=== PATIENT | male | born 1985 | race American Indian/Alaskan Native ===

== ENCOUNTER 2018-10-24 09:07 | Emergency (ER) | payer OTHER ==
[2018-10-24 09:15] VITALS: BP 127/85
--- NOTE | 2018-10-24 10:49 | Emergency Department Report ---
ED ENT HPI - General Chief complaint: Dental/Oral Stated complaint: R SIDE MOUTH PAIN/CANT EAT OR SWALLOW Source: patient Mode of arrival: Ambulatory Limitations: No Limitations - History of Present Illness Initial comments: This is a 33-year-old -[place]aur[place] female presents to the emergency room with right lower side dental pain for 2-3 days. Patient states this same tooth broke 2 years ago but he really hasn't had any issues with it until recently. He has currently taken [id number] NSAIDs with no improvement of symptoms. He denies facial swelling, difficulty swallowing, sore throat, fever, nausea or vomiting. MD complaint: tooth pain Onset/Timin -: days(s) Location: tooth # (32) Severity: severe Severity scale (0 -10): 10 Quality: aching, other (throbbing) Consistency: constant Improves with: none Worsens with: eating Context- Dental: poor dental care Associated Symptoms: gum swelling, toothache. denies: fever, cough, pain with swallowing, sore throat, tinnitus, hearing loss, discharge from ear, rhinorrhea - Related Data Previous Rx's Medication Instructions Recorded Last Taken Type Amoxicillin [Trimox CAP] 500 mg PO Q8H #21 capsule 10/24/18 Unknown Rx Naproxen [Naprosyn] 500 mg PO BID PRN #20 tablet 10/24/18 Unknown Rx traMADol [Ultram 50 MG tab] 50 mg PO Q6HR PRN #12 tablet 10/24/18 Unknown Rx Allergies Allergy/AdvReac Type Severity Reaction Status Date / Time No Known Allergies Allergy Unverified 10/24/18 09:15 ED Dental HPI - General Chief complaint: Dental/Oral Stated complaint: R SIDE MOUTH PAIN/CANT EAT OR SWALLOW Source: patient Mode of arrival: Ambulatory Limitations: No Limitations - Related Data Previous Rx's Medication Instructions Recorded Last Taken Type Amoxicillin [Trimox CAP] 500 mg PO Q8H #21 capsule 10/24/18 Unknown Rx Naproxen [Naprosyn] 500 mg PO BID PRN #20 tablet 10/24/18 Unknown Rx traMADol [Ultram 50 MG tab] 50 mg PO Q6HR PRN #12 tablet 10/24/18 Unknown Rx Allergies Allergy/AdvReac Type Severity Reaction Status Date / Time No Known Allergies Allergy Unverified 10/24/18 09:15 ED Review of Systems ROS: Stated complaint: R SIDE MOUTH PAIN/CANT EAT OR SWALLOW Other details as noted in HPI Constitutional: denies: chills, fever ENT: dental pain. denies: ear pain, throat pain Respiratory: denies: cough, shortness of breath, wheezing Cardiovascular: denies: chest pain, palpitations Gastrointestinal: denies: abdominal pain, nausea, diarrhea Skin: denies: rash, lesions Neurological: denies: headache, weakness, paresthesias Psychiatric: denies: anxiety, depression ED Past Medical Hx - Past Medical History Previous Medical History?: No - Surgical History Past Surgical History?: No - Social History Smoking Status: Current Every Day Smoker Substance Use Type: Marijuana - Medications Home Medications: Home Medications Medication Instructions Recorded Confirmed Last Taken Type Amoxicillin [Trimox CAP] 500 mg PO Q8H #21 capsule 10/24/18 Unknown Rx Naproxen [Naprosyn] 500 mg PO BID PRN #20 tablet 10/24/18 Unknown Rx traMADol [Ultram 50 MG tab] 50 mg PO Q6HR PRN #12 tablet 10/24/18 Unknown Rx ED Physical Exam - General Limitations: No Limitations General appearance: alert, in no apparent distress - ENT ENT exam: Present: normal orophraynx, mucous membranes moist, TM's normal bilaterally, normal external ear exam, other (buccal swelling aroung #32, tenderness, dark brown caries center tooth, no palpable cyst pockets) - Neck Neck exam: Present: normal inspection - Respiratory Respiratory exam: Present: normal lung sounds bilaterally. Absent: respiratory distress - Cardiovascular Cardiovascular Exam: Present: regular rate, normal rhythm. Absent: systolic murmur, diastolic murmur, rubs, gallop - Neurological Exam Neurological exam: Present: alert, oriented X3 - Psychiatric Psychiatric exam: Present: normal affect, normal mood - Skin Skin exam: Present: warm, dry, intact, normal color. Absent: rash ED Course Vital Signs 10/24/18 09:11 Temperature 98.6 F Pulse Rate 76 Respiratory 16 Rate Blood Pressure 127/85 O2 Sat by Pulse 99 Oximetry ED Medical Decision Making - Medical Decision Making This is a 33-year-old male that presents with dental pain for 3 days. Patient is stable and was examined by me. Given norco once in ER. Susceptible of dental dental caries. Start amoxicillin, tramadol, and naproxen. Discussed plan with patient. He agreed with ER plan. Discharged home stable. Follow up with dentist. Critical care attestation.: If time is entered above; I have spent that time in minutes in the direct care of this critically ill patient, excluding procedure time. ED Disposition Clinical Impression: Toothache, Dental caries Disposition: TO HOME OR SELFCARE Is pt being admited?: No Does the pt Need Aspirin: No Condition: Stable Instructions: Toothache (ED), Dental Caries (ED) Additional Instructions: Complete all days of antibiotics as prescribed. Take pain medication every 6 hours as needed for pain. Follow up with a dentist from the referrals list below. Prescriptions: Naproxen [Naprosyn] 500 mg PO BID PRN #20 tablet PRN Reason: Pain, Moderate (4-6) Amoxicillin [Trimox CAP] 500 mg PO Q8H #21 capsule traMADol [Ultram 50 MG tab] 50 mg PO Q6HR PRN #12 tablet PRN Reason: Pain [facility] [Primary Care Provider[facility] - 3-5 Days [facility] [Outside] - 3-5 Days [facility] [Outside] - 3-5 Days [facility] [Outside] - 3-5 Days Forms: Work/School Release Form(ED) Time of Disposition: 10:55
[2018-10-24] MEDS ORDERED: NORCO 5/325 PO ONE (10:50)
== END 2018-10-24 11:06 | disposition home or self-care (01) ==
LOC: ED 09:07
DX: K02.9 Dental caries, unspecified (principal); F17.200 Nicotine dependence, unspecified, uncomplicated; F12.10 Cannabis abuse, uncomplicated

== ENCOUNTER 2018-10-28 09:20 | Emergency (ER) | payer OTHER ==
[2018-10-28] MEDS ORDERED: CLEOCIN 900 MG/50 mL 900 MG/50 ML BAG IV ONE (10:26)
[2018-10-28] MEDS ORDERED: DECADRON IV ONE (10:26)
[2018-10-28] MEDS ORDERED: MORPHINE IV ONE (10:26)
[2018-10-28] MEDS ORDERED: ZOFRAN IV ONE (10:26)
[2018-10-28] MEDS ORDERED: NACL 0.9% 1000 ML 1,000 ML IV ONE ×2 (10:26→12:20)
--- NOTE | 2018-10-28 10:38 | Emergency Department Report ---
Blank Doc - Documentation Documentation: This is a 31-year-old male that presents with dental pain, sore throat with sw elling. Patient state he is currently taking amoxicillin that was here 3 days ago for a dental pain. He stated that it is getting worse appointment now that he has some difficulty breathing and able to open mouth. Upon exam patient has severe swelling and trismus. Patient was sent to the main ED for possible airway compromise. I did put in laboratory orders as well as CT scan with contrast of neck. Patient also is receiving clindamycin, Decadron, normal saline.
[2018-10-28] MEDS ORDERED: VICKS SINEX NS ONE (10:53)
[2018-10-28] MEDS ORDERED: VICKS SINEX ONE (10:56)
[2018-10-28] MEDS ORDERED: QUELICIN ONE (11:30)
[2018-10-28] MEDS ORDERED: AMIDATE IV ONE ×2 (11:30→11:37)
[2018-10-28] MEDS ORDERED: VERSED IV ONE (11:30)
[2018-10-28] MEDS ORDERED: ARTIFICIAL TEARS OPHTH OINT OU PRN (11:34)
[2018-10-28] MEDS ORDERED: VASELINE LIP THERAPY TP PRN (11:34)
[2018-10-28] MEDS ORDERED: QUELICIN IV ONE (11:37)
[2018-10-28] MEDS ORDERED: DIPRIVAN 10 MG/ML 1,000 MG/100 ML BOTTLE IV ONE (11:39)
--- NOTE | 2018-10-28 11:42 | Emergency Department Report ---
ED ENT HPI - General Chief complaint: Sore Throat Stated complaint: SWOLLEN THROAT Time Seen by Provider: 10/28/18 10:00 Source: patient Mode of arrival: Ambulatory Limitations: No Limitations - History of Present Illness Initial comments: Patient is a 33-year-old male who is presenting with difficulty swallowing. Patient was seen here 4 days ago for right sided tooth and jaw pain. Patient was diagnosed with possible dental abscess. Amoxicillin. Patient states that the pain and swelling has worsened over the last several days. Patient can hardly open his mouth and has a muffled voice and states that swallowing is "excruciating". Patient denies any fevers nausea vomiting diarrhea at this time. - Related Data Previous Rx's Medication Instructions Recorded Last Taken Type Amoxicillin [Trimox CAP] 500 mg PO Q8H #21 capsule 10/24/18 Unknown Rx Naproxen [Naprosyn] 500 mg PO BID PRN #20 tablet 10/24/18 Unknown Rx traMADol [Ultram 50 MG tab] 50 mg PO Q6HR PRN #12 tablet 10/24/18 Unknown Rx Allergies Allergy/AdvReac Type Severity Reaction Status Date / Time No Known Allergies Allergy Unverified 10/24/18 09:15 ED Dental HPI - General Chief complaint: Sore Throat Stated complaint: SWOLLEN THROAT Time Seen by Provider: 10/28/18 10:00 Source: patient Mode of arrival: Ambulatory Limitations: No Limitations - Related Data Previous Rx's Medication Instructions Recorded Last Taken Type Amoxicillin [Trimox CAP] 500 mg PO Q8H #21 capsule 10/24/18 Unknown Rx Naproxen [Naprosyn] 500 mg PO BID PRN #20 tablet 10/24/18 Unknown Rx traMADol [Ultram 50 MG tab] 50 mg PO Q6HR PRN #12 tablet 10/24/18 Unknown Rx Allergies Allergy/AdvReac Type Severity Reaction Status Date / Time No Known Allergies Allergy Unverified 10/24/18 09:15 ED Review of Systems ROS: Stated complaint: SWOLLEN THROAT Other details as noted in HPI Comment: All other systems reviewed and negative ED Past Medical Hx - Past Medical History Previous Medical History?: No - Surgical History Past Surgical History?: No - Social History Smoking Status: Current Every Day Smoker Substance Use Type: Alcohol - Medications Home Medications: Home Medications Medication Instructions Recorded Confirmed Last Taken Type Amoxicillin [Trimox CAP] 500 mg PO Q8H #21 capsule 10/24/18 Unknown Rx Naproxen [Naprosyn] 500 mg PO BID PRN #20 tablet 10/24/18 Unknown Rx traMADol [Ultram 50 MG tab] 50 mg PO Q6HR PRN #12 tablet 10/24/18 Unknown Rx ED Physical Exam - General Limitations: No Limitations General appearance: alert, in distress - Head Head exam: Present: atraumatic, normocephalic - Eye Eye exam: Present: normal appearance - ENT ENT exam: Present: mucous membranes moist - Expanded ENT Exam Expanded Ear exam: Present: normal external inspection Mouth exam: Present: drooling, trismus, muffled voice, tongue elevation (patient with submental and sublingual swelling and edema). Absent: tongue normal Throat exam: Positive: other (unable to visualize the posterior pharynx at bedsi de exam) - Neck Neck exam: Present: normal inspection, tenderness, lymphadenopathy - Respiratory Respiratory exam: Present: normal lung sounds bilaterally. Absent: respiratory distress, wheezes, rales, rhonchi, stridor - Cardiovascular Cardiovascular Exam: Present: regular rate, normal rhythm. Absent: systolic murmur, diastolic murmur, rubs, gallop - GI/Abdominal GI/Abdominal exam: Present: soft, normal bowel sounds. Absent: distended, t enderness, guarding, rebound - Rectal Rectal exam: Present: deferred - Extremities Exam Extremities exam: Present: normal inspection - Back Exam Back exam: Present: normal inspection - Neurological Exam Neurological exam: Present: alert, oriented X3 - Psychiatric Psychiatric exam: Present: normal affect, normal mood - Skin Skin exam: Present: warm, dry, intact, normal color. Absent: rash ED Course Vital Signs 10/28/18 10/28/18 10/28/18 09:34 10:39 10:46 Temperature 98.5 F Pulse Rate 91 H 101 H 84 Pulse Rate [ Anterior Bilateral Throughout] Respiratory 18 15 17 Rate Respiratory Rate [Anterior Bilateral Throughout] Blood Pressure 132/88 132/88 Blood Pressure 140/85 [Right] O2 Sat by Pulse 99 99 100 Oximetry 10/28/18 10/28/18 10/28/18 11:00 11:16 11:30 Temperature Pulse Rate 89 84 95 H Pulse Rate [ Anterior Bilateral Throughout] Respiratory 20 17 11 L Rate Respiratory Rate [Anterior Bilateral Throughout] Blood Pressure 129/95 136/89 140/86 Blood Pressure [Right] O2 Sat by Pulse 100 97 99 Oximetry 10/28/18 10/28/18 10/28/18 11:40 11:45 11:50 Temperature Pulse Rate 98 H 98 H 94 H Pulse Rate [ Anterior Bilateral Throughout] Respiratory 23 23 15 Rate Respiratory Rate [Anterior Bilateral Throughout] Blood Pressure Blood Pressure 133/85 135/82 143/82 [Right] O2 Sat by Pulse 99 99 99 Oximetry 10/28/18 10/28/18 10/28/18 12:05 12:33 12:42 Temperature Pulse Rate 89 88 87 Pulse Rate [ Anterior Bilateral Throughout] Respiratory 14 16 Rate Respiratory Rate [Anterior Bilateral Throughout] Blood Pressure 126/76 133/85 Blood Pressure 136/78 [Right] O2 Sat by Pulse 99 100 100 Oximetry 10/28/18 10/28/18 10/28/18 12:45 13:00 13:06 Temperature Pulse Rate 87 89 Pulse Rate [ 84 Anterior Bilateral Throughout] Respiratory 16 16 Rate Respiratory 16 Rate [Anterior Bilateral Throughout] Blood Pressure 124/75 Blood Pressure 133/81 [Right] O2 Sat by Pulse 99 Oximetry 10/28/18 10/28/18 10/28/18 13:40 14:43 16:33 Temperature Pulse Rate 79 83 85 Pulse Rate [ Anterior Bilateral Throughout] Respiratory 16 16 16 Rate Respiratory Rate [Anterior Bilateral Throughout] Blood Pressure Blood Pressure 127/75 123/74 120/65 [Right] O2 Sat by Pulse 100 100 100 Oximetry 10/28/18 16:34 Temperature Pulse Rate 81 Pulse Rate [ Anterior Bilateral Throughout] Respiratory 16 Rate Respiratory Rate [Anterior Bilateral Throughout] Blood Pressure Blood Pressure 118/67 [Right] O2 Sat by Pulse 100 Oximetry - Reevaluation(s) Reevaluation #1: 10/28/18 16:09 CT report has returned which shows that the patient does have a confirmed with expansion. Did discuss the case with Dr. Shelton with [facility] and he states that they normally deferred to the oral surgeon's. There is a call center we contacted Dr. Josephine Russ who states she is actually on her way to [facility] elective patient transferred there. Call has been made to [place] transfer line to have the patient accepted Reevaluation #2: 10/28/18 16:37 Discussed the case with Dr. Russ with oral surgery and she stated that she is actually on her way to [facility] at this time to perform surgery on another patient. She would like the patient to be transferred to the ED so that this patient couldn't be taken to the OR after the patient she is going to see currently. Dr. Gambino at the ED has accepted the patient at this time. - Intubation Time Out Performed: Yes Sedative: Etomidate Mg Given: 20 Paralytic: Succinylcholine Mg Given: 100 Laryngoscope: fiberoptic video scope ET Tube Size: 7.5 Other Airway Intervention: Dr. Palomo from anesthesia performed intubation Tube Secured Depth (cm): 22 Tube Secured Location: lips Tube Placement Confirmation: visualized tube passing t, equal breath sounds bilat, no breath sounds over epi, confirmation by capnometr Patient Tolerated Procedure: well Intubation Complications: none Additional Comments: Patient had first attempt performed by me however the patient had a great deal of posterior pharyngeal swelling and Dr. Palomo took over the intubation. Patient was intubated on first attempt. There were no evidence of hypoxia. ED Medical Decision Making - Lab Data Result diagrams: 10/28/18 11:15 10/28/18 11:15 Lab Results 10/28/18 10/28/18 10/28/18 Range/Units 11:15 11:15 11:15 WBC 15.0 H (4.5-11.0) K/mm3 RBC 5.10 H (3.65-5.03) M/mm3 Hgb 16.4 H (11.8-15.2) gm/dl Hct 48.4 H (35.5-45.6) % MCV 95 H (84-94) fl MCH 32 (28-32) pg MCHC 34 (32-34) % RDW 13.7 (13.2-15.2) % Plt Count 245 (140-440) K/mm3 Lymph % (Auto) 10.2 L (13.4-35.0) % Kane % (Auto) 10.8 H (0.0-7.3) % Eos % (Auto) 0.2 (0.0-4.3) % Baso % (Auto) 0.2 (0.0-1.8) % Lymph # 1.5 (1.2-5.4) K/mm3 Kane # 1.6 H (0.0-0.8) K/mm3 Eos # 0.0 (0.0-0.4) K/mm3 Baso # 0.0 (0.0-0.1) K/mm3 Seg Neutrophils % 78.6 H (40.0-70.0) % Seg Neutrophils # 11.8 H (1.8-7.7) K/mm3 POC ABG pH (7.35-7.45) POC ABG pCO2 (35-45) POC ABG pO2 (80-105) POC ABG HCO3 (22-26 mml/L) POC ABG Total CO2 (23-27mmol/L) POC ABG O2 Sat POC ABG Base Excess ((-2) - (+3)mmol/L) FiO2 % Sodium 136 L (137-145) mmol/L Potassium 3.8 (3.6-5.0) mmol/L Chloride 98.7 (98-107) mmol/L Carbon Dioxide 19 L (22-30) mmol/L Anion Gap 22 mmol/L BUN 16 (9-20) mg/dL Creatinine 2.2 H (0.8-1.5) mg/dL Estimated GFR 42 ml/min BUN/Creatinine Ratio 7 % Glucose 134 H (75-100) mg/dL Lactic Acid 2.20 H* (0.7-2.0) mmol/L Calcium 9.4 (8.4-10.2) mg/dL 10/28/18 10/28/18 Range/Units 12:55 13:03 WBC (4.5-11.0) K/mm3 RBC (3.65-5.03) M/mm3 Hgb (11.8-15.2) gm/dl Hct (35.5-45.6) % MCV (84-94) fl MCH (28-32) pg MCHC (32-34) % RDW (13.2-15.2) % Plt Count (140-440) K/mm3 Lymph % (Auto) (13.4-35.0) % Kane % (Auto) (0.0-7.3) % Eos % (Auto) (0.0-4.3) % Baso % (Auto) (0.0-1.8) % Lymph # (1.2-5.4) K/mm3 Kane # (0.0-0.8) K/mm3 Eos # (0.0-0.4) K/mm3 Baso # (0.0-0.1) K/mm3 Seg Neutrophils % (40.0-70.0) % Seg Neutrophils # (1.8-7.7) K/mm3 POC ABG pH 7.332 L (7.35-7.45) POC ABG pCO2 40.9 (35-45) POC ABG pO2 262 H (80-105) POC ABG HCO3 21.7 (22-26 mml/L) POC ABG Total CO2 23 (23-27mmol/L) POC ABG O2 Sat 100 POC ABG Base Excess -4 ((-2) - (+3)mmol/L) FiO2 50 % Sodium (137-145) mmol/L Potassium (3.6-5.0) mmol/L Chloride (98-107) mmol/L Carbon Dioxide (22-30) mmol/L Anion Gap mmol/L BUN (9-20) mg/dL Creatinine (0.8-1.5) mg/dL Estimated GFR ml/min BUN/Creatinine Ratio % Glucose (75-100) mg/dL Lactic Acid 1.20 (0.7-2.0) mmol/L Calcium (8.4-10.2) mg/dL - Radiology Data [facility] [address] [place] [address] Cat Scan Report Signed Patient: RAÚL KHANNA MR#: [id number] : 1985 Acct:[id number] Age/Sex: 33 / M ADM Date: 10/28/18 Loc: ED Attending Dr: Ordering Physician: EMILY GOOD NP Date of Service: 10/28/18 Procedure(s): CT neck w con Accession Number(s): [id number] cc: EMILY GOOD NP PROCEDURE: CT NECK W CON TECHNIQUE: CT angiography of the neck performed. Following IV contrast administration, axial images and axial and coronal reformatted images were obtained. HISTORY: dental pain with sore throat and swelling r/o absc COMPARISON: None FINDINGS: There is edema in the submandibular region, mostly on the right. This extends into the parapharyngeal region at the level of the oropharynx and hypopharynx. The airway is shifted to the left. Fluid in the nasopharynx, oropharynx probably relates to intubation. There is a bony lucency in the right mandible around the roots of posterior most molar which is likely the wisdom tooth. There is a defect in the overlying inner mandibular cortex. Findings are compatible with a periapical tooth abscess and likely represents the source of abnormal findings. I do not identify any measurable/defined soft tissue abscess although there is some fluid in the adjacent submandibular region and at least one gas bubble within the soft tissues. There is a midline submandibular lymph node measuring 1.6 cm. There are multiple minimally prominent lymph nodes in the right neck which is likely reactive adenopathy. Visualized sinuses are clear. IMPRESSION: Extensive edema and swelling involving the right submandibular region extending into the parapharyngeal soft tissues of the oropharynx and hypopharynx. Findings appear to emanate from periapical tooth abscess involving posterior-most lower molar on the right, likely the wisdom tooth. Although a measurable defined soft tissue abscess is not identified, there is adjacent fluid in the soft tissues as well a single bubble of soft tissue gas. This document is electronically signed by Mariaa Parker MD., October 28 2018 03:21:53 PM ET Transcribed By: RADHA Dictated By: MARIAA PARKER MD Electronically Authenticated By: MARIAA PARKER MD Signed Date/Time: 10/28/18 1523 DD/ 1026 TD/TT: 10/28/18 1026 Critical Care Time: Yes (30) Critical care attestation.: If time is entered above; I have spent that time in minutes in the direct care of this critically ill patient, excluding procedure time. ED Disposition Clinical Impression: Sukumar's angina syndrome, Respiratory compromise, Dental abscess Disposition: [id number]/TX-[id number] ANOTHER TYPE HLTHCARE Is pt being admited?: No Does the pt Need Aspirin: No Condition: Stable Time of Disposition: 16:40
[2018-10-28 11:57] LABS: Basophils % (Auto) 0.2 % (0.0-1.8); Calcium 9.4 mg/dL (8.4-10.2); Eosinophils % (Auto) 0.2 % (0.0-4.3); Hematocrit 48.4 % (35.5-45.6); Hemoglobin 16.4 gm/dl (11.8-15.2); Lymphocytes # (Auto) 1.5 K/mm3 (1.2-5.4); Lymphocytes % (Auto) 10.2 % (13.4-35.0); Mean Corpuscular HGB Conc 34 % (32-34); Mean Corpuscular Volume 95 fl (84-94); Monocytes # (Auto) 1.6 K/mm3 (0.0-0.8); Monocytes % (Auto) 10.8 % (0.0-7.3); Platelet Count 245 K/mm3 (140-440); Red Cell Distribution Width 13.7 % (13.2-15.2)
[2018-10-28] MEDS ORDERED: DIPRIVAN 10 MG/ML 1,000 MG/100 ML BOTTLE IV SCH (12:00)
[2018-10-28] MEDS ORDERED: DILAUDID IV ONE (12:14)
[2018-10-28] MEDS: VERSED IV NR ×2 (12:27→17:31)
[2018-10-28] MEDS ORDERED: VERSED IV PRN (12:34)
[2018-10-28] MEDS ORDERED: SUBLIMAZE IV PRN (12:43)
[2018-10-28] MEDS ORDERED: MIDAZOLAM 100 MG in NACL 0.9% 80 ML IV SCH (13:00)
[2018-10-28] MEDS ORDERED: fentaNYL DRIP Premix 2,000 MCG/100 ML BAG IV SCH (13:00)
[2018-10-28] MEDS ORDERED: VERSED IV NR (13:00)
--- NOTE | 2018-10-28 13:13 | XRay Report ---
PROCEDURE: XR CHEST 1V AP TECHNIQUE: Chest radiograph single view. HISTORY: ETT placement COMPARISONS: None . FINDINGS: Heart: Normal. Mediastinum/Vessels: Normal. Lungs/Pleural space: No infiltrate, effusion, or pneumothorax. Bony thorax: No acute osseous abnormality. Life support devices: The endotracheal tube tip projects 4 cm superior to the meera. IMPRESSION: No radiographic evidence of acute abnormality. This document is electronically signed by Dilia Womack MD., October 28 2018 01:11:36 PM ET
--- NOTE | 2018-10-28 15:23 | Cat Scan Report ---
PROCEDURE: CT NECK W CON TECHNIQUE: CT angiography of the neck performed. Following IV contrast administration, axial images and axial and coronal reformatted images were obtained. HISTORY: dental pain with sore throat and swelling r/o absc COMPARISON: None FINDINGS: There is edema in the submandibular region, mostly on the right. This extends into the parapharyngeal region at the level of the oropharynx and hypopharynx. The airway is shifted to the left. Fluid in the nasopharynx, oropharynx probably relates to intubation. There is a bony lucency in the right mandible around the roots of posterior most molar which is likel y the wisdom tooth. There is a defect in the overlying inner mandibular cortex. Findings are compatib le with a periapical tooth abscess and likely represents the source of abnormal findings. I do not id entify any measurable/defined soft tissue abscess although there is some fluid in the adjacent subman dibular region and at least one gas bubble within the soft tissues. There is a midline submandibular lymph node measuring 1.6 cm. There are multiple minimally prominent lymph nodes in the right neck which is likely reactive adenopathy. Visualized sinuses are clear. IMPRESSION: Extensive edema and swelling involving the right submandibular region extending into the parapharyngeal soft tissues of the oropharynx and hypopharynx. Findings appear to emanate from periapical tooth abscess involving posterior-most lower molar on the right, likely the wisdom tooth. Although a measurable defined soft tissue abscess is not identified, there is adjacent fluid in the soft tissues as well a single bubble of soft tissue gas. This document is electronically signed by Mariaa Parker MD., October 28 2018 03:21:53 PM ET
[2018-10-28 17:15] VITALS: BP 119/64
== END 2018-10-28 17:40 | disposition other institution (70) ==
LOC: ED 09:20
DX: K12.2 Cellulitis and abscess of mouth (principal); K04.7 Periapical abscess without sinus; F17.200 Nicotine dependence, unspecified, uncomplicated
CPT/HCPCS: 31500; 36415; 70491; 71045; 80048; 82140; 82803; 85025; 87070; 87205; 94640; 96365; 96366; 96367; 96375; 99291; J0330; J1100; J1170; J2250; J2270; J2405; J2704; J3010; J7030; Q9967; 94002

== ENCOUNTER 2019-08-15 16:08 | Emergency (ER) | payer SELFPAY ==
[2019-08-15 16:40] LABS: Basophils % (Auto) 0.6 % (0.0-1.8); Eosinophils % (Auto) 0.3 % (0.0-4.3); Hematocrit 44.3 % (35.5-45.6); Hemoglobin 15.2 gm/dl (11.8-15.2); Lymphocytes # (Auto) 2.1 K/mm3 (1.2-5.4); Mean Corpuscular HGB Conc 34 % (32-34); Mean Corpuscular Volume 93 fl (84-94); Monocytes # (Auto) 0.7 K/mm3 (0.0-0.8); Monocytes % (Auto) 10.3 % (0.0-7.3); Platelet Count 272 K/mm3 (140-440); Red Blood Count 4.75 M/mm3 (3.65-5.03); Red Cell Distribution Width 13.6 % (13.2-15.2)
[2019-08-15 16:50] LABS: BUN/Creatinine Ratio 14; Blood Urea Nitrogen 15 mg/dL (9-20); Calcium 10.3 mg/dL (8.4-10.2); Hemolysis Index 8
[2019-08-15 17:11] LABS: Benzodiazepines Screen,Urine PRESUMPTIVE NEGATIVE; Methadone Screen,Urine PRESUMPTIVE NEGATIVE; Opiate Screen,Urine PRESUMPTIVE NEGATIVE
[2019-08-15] MEDS ORDERED: HALOPERIDOL LACTATE 5 MG/1 ML INJ IM PRN (17:11)
[2019-08-15] MEDS ORDERED: LORazepam 2 MG/ML VIAL IM PRN (17:11)
[2019-08-15 17:19] LABS: Bilirubin,Urine NEG (Negative); Blood,Urine NEG (Negative); Color,Urine Yellow (Yellow); Mucus,Urine 2+ /HPF
[2019-08-15 17:28] LABS: Amphetamine Screen,Urine PRESUMPTIVE POSITIVE; Cannabinoid Screen,Urine PRESUMPTIVE POSITIVE; Cocaine Screen,Urine PRESUMPTIVE POSITIVE
--- NOTE | 2019-08-15 17:58 | Emergency Department Report ---
ED General Adult HPI - General Chief complaint: Psych Stated complaint: CRAZY THOUGHT Time Seen by Provider: 08/15/19 16:18 Source: patient, RN notes reviewed, old records reviewed Mode of arrival: Ambulatory Limitations: Other (Patient will not answer my questions) - History of Present Illness Initial comments: The patient is a 34-year-old gentleman with a history of psychiatric disease. The patient presented to the ER today with a triage complaint of "crazy thoughts." Apparently, the patient has been off of his psychiatric medications. He did not endorse any physical pain to myself or nursing staff. I attempted to question the patient about the nature of his symptoms, and he refused to answer me. When I explained to the patient that I needed to hear his history from him, he initially told me to "read the chart", and then he told me to " suck [ my ] niesha." The patient then refused to answer additional questions. At the moment, he is not accompanied by friends, family member for additional collateral information or history. The patient would not describe the qualitative nature of his symptoms, exacerbating or relieving factors, or radiation. He would not answer most review of systems questions. Severity scale (0 -10): 0 - Related Data Previous Rx's Medication Instructions Recorded Last Taken Type Amoxicillin [Trimox CAP] 500 mg PO Q8H #21 capsule 10/24/18 Unknown Rx Naproxen [Naprosyn] 500 mg PO BID PRN #20 tablet 10/24/18 Unknown Rx traMADoL [Ultram 50 MG tab] 50 mg PO Q6HR PRN #12 tablet 10/24/18 Unknown Rx Allergies Allergy/AdvReac Type Severity Reaction Status Date / Time No Known Allergies Allergy Verified 08/15/19 16:10 ED Review of Systems ROS: Stated complaint: CRAZY THOUGHT Other details as noted in HPI Comment: See history of present illness ED Past Medical Hx - Past Medical History Hx Psychiatric Treatment: Yes (BIPOLAR/ SCHIZOPHRENIC) - Surgical History Past Surgical History?: No - Social History Smoking Status: Current Every Day Smoker Substance Use Type: Alcohol, Cocaine, Heroin, Marijuana, Methamphetamines - Medications Home Medications: Home Medications Medication Instructions Recorded Confirmed Last Taken Type Amoxicillin [Trimox CAP] 500 mg PO Q8H #21 capsule 10/24/18 Unknown Rx Naproxen [Naprosyn] 500 mg PO BID PRN #20 tablet 10/24/18 Unknown Rx traMADoL [Ultram 50 MG tab] 50 mg PO Q6HR PRN #12 tablet 10/24/18 Unknown Rx ED Physical Exam - General Limitations: Other (Patient does not willingly participate in his history and physical) General appearance: alert, in no apparent distress - Head Head exam: Present: atraumatic, normocephalic - Eye Eye exam: Present: normal appearance, EOMI - ENT ENT exam: Present: normal exam, mucous membranes moist, normal external ear exam - Neck Neck exam: Present: normal inspection, full ROM - Respiratory Respiratory exam: Absent: respiratory distress, stridor, accessory muscle use - Rectal Rectal exam: Present: deferred - Extremities Exam Extremities exam: Present: normal inspection, other (Moving 4 extremities spontaneously) - Back Exam Back exam: Present: normal inspection, full ROM - Neurological Exam Neurological exam: Present: other (The patient is awake. There is no facial droop. There is no dysphonia. Moving 4 extremities spontaneously.) - Psychiatric Psychiatric exam: Present: agitated, suicidal ideation - Skin Skin exam: Present: normal color ED Course Vital Signs 08/15/19 08/15/19 16:13 16:34 Temperature 98.6 F 99.2 F Pulse Rate 117 H 97 H Respiratory 18 19 Rate Blood Pressure 144/97 Blood Pressure 130/87 [Right] O2 Sat by Pulse 98 100 Oximetry ED Medical Decision Making - Lab Data Result diagrams: 08/15/19 16:21 08/15/19 16:21 Vital Signs 08/15/19 08/15/19 16:13 16:34 Temperature 98.6 F 99.2 F Pulse Rate 117 H 97 H Respiratory 18 19 Rate Blood Pressure 144/97 Blood Pressure 130/87 [Right] O2 Sat by Pulse 98 100 Oximetry Lab Results 08/15/19 08/15/19 08/15/19 Range/Units 16:21 16:21 16:21 WBC (4.5-11.0) K/mm3 RBC (3.65-5.03) M/mm3 Hgb (11.8-15.2) gm/dl Hct (35.5-45.6) % MCV (84-94) fl MCH (28-32) pg MCHC (32-34) % RDW (13.2-15.2) % Plt Count (140-440) K/mm3 Lymph % (Auto) (13.4-35.0) % [place]lee % (Auto) (0.0-7.3) % Eos % (Auto) (0.0-4.3) % Baso % (Auto) (0.0-1.8) % Lymph # (1.2-5.4) K/mm3 Greenlee # (0.0-0.8) K/mm3 Eos # (0.0-0.4) K/mm3 Baso # (0.0-0.1) K/mm3 Seg Neutrophils % (40.0-70.0) % Seg Neutrophils # (1.8-7.7) K/mm3 Sodium 136 L (137-145) mmol/L Potassium 4.0 (3.6-5.0) mmol/L Chloride 99.5 (98-107) mmol/L Carbon Dioxide 21 L (22-30) mmol/L Anion Gap 20 mmol/L BUN 15 (9-20) mg/dL Creatinine 1.1 (0.8-1.5) mg/dL Estimated GFR > 60 ml/min BUN/Creatinine Ratio 14 % Glucose 90 (75-100) mg/dL Calcium 10.3 H (8.4-10.2) mg/dL Magnesium (1.7-2.3) mg/dL Total Creatine Kinase (55-170) units/L Urine Color (Yellow) Urine Turbidity (Clear) Urine pH (5.0-7.0) Ur Specific [place] (1.003-1.030) Urine Protein (Negative) mg/dL Urine Glucose (UA) (Negative) mg/dL Urine Ketones (Negative) mg/dL Urine Blood (Negative) Urine Nitrite (Negative) Urine Bilirubin (Negative) Urine Urobilinogen (<2.0) mg/dL Ur Leukocyte Esterase (Negative) Urine WBC (Auto) (0.0-6.0) /HPF Urine RBC (Auto) (0.0-6.0) /HPF Urine Mucus /HPF Salicylates < 0.3 L (2.8-20.0) mg/dL Urine Opiates Screen Urine Methadone Screen Acetaminophen < 5.0 L (10.0-30.0) ug/mL Ur Barbiturates Screen Ur Phencyclidine Scrn Ur Amphetamines Screen U Benzodiazepines Scrn Stuckey 0.1 (0.0-1.2) mmol/L Urine Cocaine Screen U Marijuana (THC) Screen Drugs of Abuse Note Plasma/Serum Alcohol (0-0.07) % 08/15/19 08/15/19 08/15/19 Range/Units 16:21 16:21 16:26 WBC 6.5 (4.5-11.0) K/mm3 RBC 4.75 (3.65-5.03) M/mm3 Hgb 15.2 (11.8-15.2) gm/dl Hct 44.3 (35.5-45.6) % MCV 93 (84-94) fl MCH 32 (28-32) pg MCHC 34 (32-34) % RDW 13.6 (13.2-15.2) % Plt Count 272 (140-440) K/mm3 Lymph % (Auto) 32.0 (13.4-35.0) % Greenlee % (Auto) 10.3 H (0.0-7.3) % Eos % (Auto) 0.3 (0.0-4.3) % Baso % (Auto) 0.6 (0.0-1.8) % Lymph # 2.1 (1.2-5.4) K/mm3 Greenlee # 0.7 (0.0-0.8) K/mm3 Eos # 0.0 (0.0-0.4) K/mm3 Baso # 0.0 (0.0-0.1) K/mm3 Seg Neutrophils % 56.8 (40.0-70.0) % Seg Neutrophils # 3.7 (1.8-7.7) K/mm3 Sodium (137-145) mmol/L Potassium (3.6-5.0) mmol/L Chloride (98-107) mmol/L Carbon Dioxide (22-30) mmol/L Anion Gap mmol/L BUN (9-20) mg/dL Creatinine (0.8-1.5) mg/dL Estimated GFR ml/min BUN/Creatinine Ratio % Glucose (75-100) mg/dL Calcium (8.4-10.2) mg/dL Magnesium 2.10 (1.7-2.3) mg/dL Total Creatine Kinase 460 H (55-170) units/L Urine Color (Yellow) Urine Turbidity (Clear) Urine pH (5.0-7.0) Ur Specific [place] (1.003-1.030) Urine Protein (Negative) mg/dL Urine Glucose (UA) (Negative) mg/dL Urine Ketones (Negative) mg/dL Urine Blood (Negative) Urine Nitrite (Negative) Urine Bilirubin (Negative) Urine Urobilinogen (<2.0) mg/dL Ur Leukocyte Esterase (Negative) Urine WBC (Auto) (0.0-6.0) /HPF Urine RBC (Auto) (0.0-6.0) /HPF Urine Mucus /HPF Salicylates (2.8-20.0) mg/dL Urine Opiates Screen Urine Methadone Screen Acetaminophen (10.0-30.0) ug/mL Ur Barbiturates Screen Ur Phencyclidine Scrn Ur Amphetamines Screen U Benzodiazepines Scrn Stuckey (0.0-1.2) mmol/L Urine Cocaine Screen U Marijuana (THC) Screen Drugs of Abuse Note Plasma/Serum Alcohol < 0.01 (0-0.07) % 08/15/19 08/15/19 Range/Units 16:50 16:51 WBC (4.5-11.0) K/mm3 RBC (3.65-5.03) M/mm3 Hgb (11.8-15.2) gm/dl Hct (35.5-45.6) % MCV (84-94) fl MCH (28-32) pg MCHC (32-34) % RDW (13.2-15.2) % Plt Count (140-440) K/mm3 Lymph % (Auto) (13.4-35.0) % [place] % (Auto) (0.0-7.3) % Eos % (Auto) (0.0-4.3) % Baso % (Auto) (0.0-1.8) % Lymph # (1.2-5.4) K/mm3 [place] # (0.0-0.8) K/mm3 Eos # (0.0-0.4) K/mm3 Baso # (0.0-0.1) K/mm3 Seg Neutrophils % (40.0-70.0) % Seg Neutrophils # (1.8-7.7) K/mm3 Sodium (137-145) mmol/L Potassium (3.6-5.0) mmol/L Chloride (98-107) mmol/L Carbon Dioxide (22-30) mmol/L Anion Gap mmol/L BUN (9-20) mg/dL Creatinine (0.8-1.5) mg/dL Estimated GFR ml/min BUN/Creatinine Ratio % Glucose (75-100) mg/dL Calcium (8.4-10.2) mg/dL Magnesium (1.7-2.3) mg/dL Total Creatine Kinase (55-170) units/L Urine Color Yellow (Yellow) Urine Turbidity Clear (Clear) Urine pH 5.0 (5.0-7.0) Ur Specific [place] 1.026 (1.003-1.030) Urine Protein 30 mg/dl (Negative) mg/dL Urine Glucose (UA) Neg (Negative) mg/dL Urine Ketones 20 (Negative) mg/dL Urine Blood Neg (Negative) Urine Nitrite Neg (Negative) Urine Bilirubin Neg (Negative) Urine Urobilinogen 2.0 (<2.0) mg/dL Ur Leukocyte Esterase Neg (Negative) Urine WBC (Auto) 2.0 (0.0-6.0) /HPF Urine RBC (Auto) 1.0 (0.0-6.0) /HPF Urine Mucus 2+ /HPF Salicylates (2.8-20.0) mg/dL Urine Opiates Screen Presumptive negative Urine Methadone Screen Presumptive negative Acetaminophen (10.0-30.0) ug/mL Ur Barbiturates Screen Presumptive negative Ur Phencyclidine Scrn Presumptive negative Ur Amphetamines Screen Presumptive positive U Benzodiazepines Scrn Presumptive negative [place] (0.0-1.2) mmol/L Urine Cocaine Screen Presumptive positive U Marijuana (THC) Screen Presumptive positive Drugs of Abuse Note Disclamer Plasma/Serum Alcohol (0-0.07) % - Medical Decision Making Differential diagnosis, including but not limited to: Suicidality, mood disorder, psychosis, malingering, secondary gain, personality disorder Assessment and plan: 34-year-old gentleman with psychiatric symptoms, refusing to allow a tactile physical exam, and refusing to participate in history. He is afebrile with reassuring vital signs. His observed physical exam appears to be unremarkable. Screening laboratory studies do not demonstrate any emergent medical or toxicologic condition. Psychiatric consultation is requested. Patient placed on emergency room hold. At this point in time, patient does not appear to have an immediate medical contraindication to psychiatric admission, evaluation, consultation and placement. We are awaiting the psychiatric team's input at this time. Critical care attestation.: If time is entered above; I have spent that time in minutes in the direct care of this critically ill patient, excluding procedure time. ED Disposition Condition: Stable
[2019-08-16 01:43] VITALS: BP 97/59
== END 2019-08-16 09:02 ==
LOC: ED 16:08
DX: F25.0 Schizoaffective disorder, bipolar type (principal); F28 Other psychotic disorder not due to a substance or known physiological condition; F12.90 Cannabis use, unspecified, uncomplicated; F15.90 Other stimulant use, unspecified, uncomplicated; F14.90 Cocaine use, unspecified, uncomplicated; F11.90 Opioid use, unspecified, uncomplicated; Z79.899 Other long term (current) drug therapy
CPT/HCPCS: 36415; 80048; 80178; 80307; 80320; 81001; 82550; 83735; 85025; G0480